=== PATIENT | female | born 1955 | race Caucasian/White ===

== ENCOUNTER 2024-04-16 11:36 | Inpatient (IN) ==
[2024-04-16] MEDS: fentaNYL 100 mcg/2 ml 50 MCG/ML VIAL IV SLOW PU ONE (12:28)
[2024-04-16] MEDS: HYDROmorphone 0.5 MG/0.5 ML SYRINGE IV ONE (13:13)
[2024-04-16] MEDS: Lactated Ringers 1000 ml BAG 1,000 ML IV ONE ×2 (13:14→18:28)
[2024-04-16 13:28] LABS: INR 0.99 (0.83-1.13)
[2024-04-16 14:12] LABS: ALT 22 U/L (7-52); Albumin 4.8 g/dL (3.2-5.2); Albumin/Globulin Ratio 1.8 (1-3); Alkaline Phosphatase 69 U/L (35-149); Anion Gap 7 mmol/L (2-16); Blood Urea Nitrogen 11 mg/dL (6-24); CO2 Carbon Dioxide 29 mmol/L (22-32); Calcium 9.9 mg/dL (8.6-10.3); Chloride 98 mmol/L (101-111); Creatinine, Serum 0.56 mg/dL (0.51-0.95); Globulin 2.7 g/dL (2-4); Glucose 105 mg/dL (70-100); Sodium 134 mmol/L (135-145); Total Bilirubin 0.5 mg/dL (0.2-1.0); Total Protein 7.5 g/dL (6.4-8.9); eGFR CKD-EPI 99.3 (>60)
[2024-04-16 14:48] LABS: ABS Basophils 0.1 10^3/uL (0.0-0.1); ABS Monocytes 0.6 10^3/uL (0.0-0.9); ABS Neutrophils 10.2 10^3/uL (1.5-7.6); Eosinophil % 0.2 %; Hematocrit 37.4 % (35-45); Hemoglobin 12.7 g/dL (11.5-14.3); Lymphocyte % 8.5 %; Mean Corpuscular Hemoglobin 32.2 pg (27-33); Mean Corpuscular Hgb Conc 33.8 g/dL (31-36); Mean Corpuscular Volume 95.2 fL (80-97); Mean Platelet Volume 7.5 fL (7.5-11.2); Platelet Count 212 10^3/uL (150-450); Red Blood Count 3.93 10^6/uL (3.63-4.92); Red Cell Distribution Width 13.2 % (12-17); White Blood Count 11.9 10^3/uL (3.8-11.8)
[2024-04-16] MEDS ORDERED: Albuterol HFA INHALER 8 gm MDI INH PRN (15:18)
[2024-04-16] MEDS ORDERED: Nicotine PATCH 21 MG/24 HR PATCH TRANSDERM PRN (15:23)
[2024-04-16] MEDS: Acetaminophen IV 1 GM/100ML 1,000 MG/100 ML BAG IV SCH (15:49)
[2024-04-16] MEDS: Morphine ER 15 mg TAB ** extended release PO SCH (15:51)
[2024-04-16 16:51] LABS: Potassium Redraw 3.7 mmol/L (3.5-5.0)
[2024-04-16] MEDS ORDERED: hydrALAZINE 20 mg/ml 1 ML Vial IV IV SLOW PU PRN (18:04)
[2024-04-16] MEDS: HYDROmorphone 1 MG/1 ML SYRINGE IV SLOW PU ONE (20:38)
[2024-04-16] MEDS ORDERED: BUDESONIDE/GLYCOPYR/FORMOTEROL MDI (NF) INH SCH (21:00)
[2024-04-16] MEDS: BUDESONIDE INH SCH (21:37)
[2024-04-16] MEDS: FORMOTEROL INH SCH (21:37)
[2024-04-16] MEDS: GLYCOPYRROLATE INH SCH (21:37)
[2024-04-17 05:44] LABS: ABS Lymphocytes 0.7 10^3/uL (1.0-4.8); ABS Monocytes 0.4 10^3/uL (0.0-0.9); ABS Neutrophils 9.2 10^3/uL (1.5-7.6); Eosinophil % 0.1 %; Hematocrit 35.1 % (35-45); Hemoglobin 12.1 g/dL (11.5-14.3); Lymphocyte % 6.6 %; Mean Corpuscular Hemoglobin 32.5 pg (27-33); Mean Corpuscular Hgb Conc 34.6 g/dL (31-36); Mean Corpuscular Volume 94.1 fL (80-97); Mean Platelet Volume 7.2 fL (7.5-11.2); Platelet Count 202 10^3/uL (150-450); Red Blood Count 3.73 10^6/uL (3.63-4.92); Red Cell Distribution Width 12.9 % (12-17); White Blood Count 10.4 10^3/uL (3.8-11.8)
[2024-04-17 06:25] LABS: Calcium 9.8 mg/dL (8.6-10.3); Creatinine, Serum 0.49 mg/dL (0.51-0.95); Potassium 3.8 mmol/L (3.5-5.0); eGFR CKD-EPI 102.6 (>60)
[2024-04-17] MEDS ORDERED: Naloxone 0.4 mg VIAL 0.4 mg/ml 1 ml VIAL IV PRN (07:03)
[2024-04-17] MEDS ORDERED: Ondansetron 4 mg VIAL 2 MG/ML 2 ml VIAL IV PRN (07:03)
[2024-04-17] MEDS ORDERED: Metoclopramide 5 MG/ML VIAL (10 mg) IV PRN (07:03)
[2024-04-17] MEDS ORDERED: NS 0.45% 1000 ml BAG 1,000 ML IV SCH (08:00)
[2024-04-17] MEDS: Acetaminophen IV 1 GM/100ML 1,000 MG/100 ML BAG IV ONE (08:26)
[2024-04-17] MEDS ORDERED: ceFAZolin 2 GM in NS PREMIX 2 GM/100 ML BAG IVPB ONE (16:15)
[2024-04-17] MEDS ORDERED: Bupivacaine 0.25% SDV 30 ML ONE (17:36)
[2024-04-17] MEDS ORDERED: fentaNYL 100 mcg/2 ml 50 MCG/ML VIAL ONE (19:26)
[2024-04-17] MEDS: fentaNYL 100 mcg/2 ml 50 MCG/ML VIAL IV PRN (19:33)
[2024-04-17] MEDS: Buffered Lidocaine 1% SYRIN 1 ml INTRADERM ONE (22:23)
[2024-04-17] MEDS: Scopolamine 1 mg/72hr PATCH TRANSDERM ONE (22:24)
[2024-04-17] MEDS: Lactated Ringers 1000 ml BAG 1,000 ML IV SCH (22:33)
[2024-04-18] MEDS: Lactated Ringers 1000 ml BAG 1,000 ML IV SCH (00:14)
[2024-04-18 06:00] LABS: ABS Eosinophils 0.1 10^3/uL (0.0-0.5); ABS Lymphocytes 0.8 10^3/uL (1.0-4.8); ABS Monocytes 0.4 10^3/uL (0.0-0.9); Eosinophil % 0.9 %; Hematocrit 31.3 % (35-45); Hemoglobin 10.8 g/dL (11.5-14.3); Lymphocyte % 10.4 %; Mean Corpuscular Hemoglobin 32.8 pg (27-33); Mean Corpuscular Hgb Conc 34.6 g/dL (31-36); Mean Corpuscular Volume 94.8 fL (80-97); Mean Platelet Volume 7.5 fL (7.5-11.2); Nucleated Red Blood Cells % 0.1 %/100WBC (0.0-0.8); Platelet Count 153 10^3/uL (150-450); Red Cell Distribution Width 12.9 % (12-17); White Blood Count 7.3 10^3/uL (3.8-11.8)
[2024-04-18] MEDS: Albuterol HFA INHALER 8 gm MDI INH PRN (06:18)
[2024-04-18 06:43] LABS: Calcium 9.4 mg/dL (8.6-10.3); Creatinine, Serum 0.61 mg/dL (0.51-0.95); Potassium 3.7 mmol/L (3.5-5.0); eGFR CKD-EPI 97.3 (>60)
[2024-04-18] MEDS ORDERED: Rocuronium 50 mg VIAL 10 mg/ml 5 ml VIAL (50 mg) ONE (23:21)
[2024-04-18] MEDS ORDERED: Propofol 10 MG/ML 20 ML BTL ONE (23:21)
[2024-04-18] MEDS ORDERED: Ondansetron 4 mg VIAL 2 MG/ML 2 ml VIAL ONE (23:21)
[2024-04-18] MEDS ORDERED: Desflurane 240 ML INH ONE (23:21)
[2024-04-18] MEDS ORDERED: Dexamethasone IV 4 MG/ML VIAL 1 ml VIAL ONE (23:21)
[2024-04-18] MEDS ORDERED: fentaNYL 100 mcg/2 ml 50 MCG/ML VIAL ONE (23:21)
[2024-04-18] MEDS ORDERED: Succinylcholine 200 mg VIAL 20 mg/ml 10 ml VIAL (200 mg) ONE (23:21)
[2024-04-18] MEDS ORDERED: Midazolam 2 mg/2 ml VIAL 1 mg/ml 2 ml VIAL (2 mg) ONE (23:27)
[2024-04-18] MEDS ORDERED: Ondansetron 4 mg VIAL 2 MG/ML 2 ml VIAL IV PRN (23:28)
[2024-04-18] MEDS ORDERED: Naloxone 0.4 mg VIAL 0.4 mg/ml 1 ml VIAL IV PRN ×2 (23:28)
[2024-04-18] MEDS ORDERED: ceFAZolin 1 GM in Dextrose 2 GM/100 ML BAG ONE (23:40)
[2024-04-19] MEDS ORDERED: Polyethylene Glycol 3350 17 GM PACKET PO PRN (00:51)
[2024-04-19] MEDS ORDERED: Magnesium Hydroxide LIQ 30 ML UDC PO PRN (00:51)
[2024-04-19] MEDS ORDERED: Senna TAB 8.6 mg TAB PO PRN (00:51)
[2024-04-19] MEDS ORDERED: fentaNYL 100 mcg/2 ml 50 MCG/ML VIAL ONE ×4 (01:29→06:31)
[2024-04-19] MEDS ORDERED: Rocuronium 50 mg VIAL 10 mg/ml 5 ml VIAL (50 mg) ONE (03:37)
[2024-04-19] MEDS ORDERED: Propofol 10 MG/ML 20 ML BTL ONE (05:13)
[2024-04-19] MEDS ORDERED: Lidocaine 2% PF 5 ML VIAL ONE (05:13)
[2024-04-19] MEDS ORDERED: IVPREMIX IV ONE (05:21)
[2024-04-19] MEDS ORDERED: ESMOLOL IV ONE (05:21)
[2024-04-19] MEDS ORDERED: Esmolol 10 MG/ML 10 ML (100 mg) IV ONE (05:23)
[2024-04-19] MEDS: fentaNYL 100 mcg/2 ml 50 MCG/ML VIAL IV PRN (06:07)
[2024-04-19] MEDS ORDERED: HYDROmorphone 1 MG/1 ML SYRINGE ONE (06:59)
[2024-04-19] MEDS: HYDROmorphone 1 MG/1 ML SYRINGE IV PRN (07:00)
[2024-04-19 08:08] LABS: Hematocrit 26.2 % (35-45); Hemoglobin 9.1 g/dL (11.5-14.3); Mean Corpuscular Hemoglobin 33.2 pg (27-33); Mean Corpuscular Hgb Conc 34.9 g/dL (31-36); Mean Corpuscular Volume 95.2 fL (80-97); Mean Platelet Volume 7.6 fL (7.5-11.2); Platelet Count 153 10^3/uL (150-450); Red Blood Count 2.75 10^6/uL (3.63-4.92); Red Cell Distribution Width 12.8 % (12-17); White Blood Count 8.2 10^3/uL (3.8-11.8)
[2024-04-19] MEDS: Lactated Ringers 1000 ml BAG 1,000 ML IV SCH ×2 (08:15→12:25)
[2024-04-19] MEDS: ceFAZolin 1 GM ADVAN 2 GM in NS 0.9% 50 ML 50 ML IVPB SCH (08:15)
[2024-04-19] MEDS: Buffered Lidocaine 1% SYRIN 1 ml INTRADERM ONE (08:39)
[2024-04-19] MEDS: Scopolamine 1 mg/72hr PATCH TRANSDERM ONE (08:39)
[2024-04-19] MEDS ORDERED: Magnesium Hydroxide LIQ 30 ML UDC PO SCH (09:00)
[2024-04-19] MEDS: Morphine ER 15 mg TAB ** extended release PO SCH (09:00)
[2024-04-19] MEDS: ceFAZolin 2 GM PREMIX 2 GM/50 ML BAG IV SCH (09:34)
[2024-04-19] MEDS: Enoxaparin 30 MG/0.3 ML SYR SUBCUT SCH (11:44)
[2024-04-19] MEDS: Iohexol 350 (CONTRAST) 500 ML MDV IV ONE (15:28)
[2024-04-19] MEDS: Heparin 5000 UNITS/ML 1 mL VIAL IV SCH (17:33)
[2024-04-19] MEDS: Heparin DRIP 25,000 UNITS BAG 25,000 UNITS/250 ML BAG IV SCH (17:36)
[2024-04-19 17:58] VITALS: BP 121/80
== END 2024-04-19 19:15 | disposition short-term general hospital (02) | DRG 481 ==
LOC: ED 11:36 → EDHOLD 14:11 → SSU 18:42
PROVIDERS: ADMIT Hospitalist; ATTEND Internal Medicine